=== PATIENT | male | born 1940 | race Caucasian/White ===

== ENCOUNTER 2017-11-05 07:17 | Day surgery (SDC) | payer MEDICARE, BC ==
[2017-11-05] MEDS: Polymyxin B/Trimethoprim 10 ML Bottle EYELF SCH ×4 (07:35→09:51)
--- NOTE | 2017-11-05 07:39 | PCM.PREANE ---
Preanesthetic Assessment - Anesthesia/Transfusion/Family Hx Anesthesia History: Prior Anesthesia Without Reaction Family History of Anesthesia Reaction: No Transfusion History: Prior Transfusion Without Reaction - Review of Systems General: No Symptoms Pulmonary: Shortness of Breath, Other (asthma, COPD) Cardiovascular: Other (HTN, afib, Increased cholesterol) Gastrointestinal: No Symptoms Neurological: No Symptoms Other: Reports: Easy Bruising - Physical Assessment NPO Status Date: 11/04/17 NPO Status Time: 22:00 Pulse: 78 O2 Sat by Pulse Oximetry: 95 Respiratory Rate: 16 Blood Pressure: 134/90 Weight: 70.76 kg ASA Class: 3 Mental Status: Alert & Oriented x3 Airway Class: Mallampati = 2 Dentition: Reports: Normal Dentition, Dentures, Edentulous Thyro-Mental Finger Breadths: 3 Mouth Opening Finger Breadths: 3 ROM/Head Extension: Full Lungs: Clear to Auscultation, Normal Respiratory Effort Cardiovascular: Regular Rate, Regular Rhythm - Allergies Allergies/Adverse Reactions: Allergies Allergy/AdvReac Type Severity Reaction Status Date / Time bupropion Allergy Other Verified 11/04/17 09:46 codeine Allergy Itching Verified 11/04/17 09:46 tramadol Allergy Cannot Verified 11/04/17 09:46 Remember - Blood Blood Available: No Product(s) Available: None - Anesthesia Plan Pre-Op Medication Ordered: None Beta Klaus: Carvedilol Med Last Dose Date: 11/05/17 Med Last Dose Time: 06:30 - Acknowledgements Anesthesia Type Planned: MAC Pt an Appropriate Candidate for the Planned Anesthesia: Yes Alternatives and Risks of Anesthesia Discussed w Pt/Guardian: Yes Pt/Guardian Understands and Agrees with Anesthesia Plan: Yes PreAnesthesia Questionnaire - HOME MEDS Home Medications: Home Meds Apixaban [Eliquis] 5 mg PO BID 12/21/15 [History] Budesonide/Formoterol [Symbicort 160-4.5 MCG] 2 puff INH BID 12/21/15 [History] Calcium Carbonate/Vitamin D3 [Os-Marito 500+D Caplet] 1 each PO DAILY 12/21/15 [ History] Carvedilol [Coreg] 25 mg PO BID 12/21/15 [History] Digoxin 125 mcg PO DAILY 12/21/15 [History] Furosemide [Lasix] 40 mg PO BID 12/21/15 [History] Simvastatin [Zocor] 40 mg PO BEDTIME 12/21/15 [History] Ubidecarenone [Co Q-10] 200 mg PO DAILY 12/21/15 [History] Cyanocobalamin (Vitamin B12) [Vitamin B12] 1,000 mcg PO DAILY 11/04/17 [History] Lisinopril 40 mg PO DAILY 11/04/17 [History] Tiotropium [Spiriva Handihaler] 1 puff INH DAILY 11/04/17 [History] - CURRENT (IN HOUSE) MEDS Current Meds: Current Medications Brimonidine Tartrate (Alphagan 0.2% Ophth Soln) 0 ml EYELF ASDIRECTED ELIZABETH Stop: 11/05/17 18:00 Cefuroxime Sodium (Zinacef) 0 mg EYELF ASDIRECTED ELIZABETH Stop: 11/05/17 18:00 Lidocaine HCl (Xylocaine-Mpf 1%) 0 ml INJECT ASDIRECTED ELIZABETH Stop: 11/05/17 18:00 Phenylephrine HCl (Michael-Synephrine 2.5% Ophth Soln) 0 ml EYELF ASDIRECTED ELIZABETH Stop: 11/05/17 18:00 Pilocarpine HCl (Pilocar 4% Ophth Soln) 0 ml EYELF ASDIRECTED ELIZABETH Stop: 11/05/17 18:00 Polymyxin/Trimethoprim Sulfate (Polytrim Ophth Soln) 0 ml EYELF ASDIRECTED ELIZABETH Stop: 11/05/17 18:00 Tetracaine HCl (Tetracaine 0.5% Steri-Unit Tomeka) 0 ml EYELF ASDIRECTED ELIZABETH Stop: 11/05/17 18:00 Tropicamide (Mydriacyl 1% Ophth Soln) 0 ml EYELF ASDIRECTED ELIZABETH Stop: 11/05/17 18:00
[2017-11-05] MEDS: Brimonidine 0.2% Ophth Soln 5 ML Bottle EYELF SCH ×4 (07:40→09:51)
[2017-11-05] MEDS: Phenylephrine 2.5% Ophth Soln 2 ML Bot EYELF SCH ×7 (07:47→09:28)
[2017-11-05] MEDS: Cefuroxime 10 MG/ML SYRINGE EYELF SCH ×2 (07:50→09:50)
[2017-11-05] MEDS: Tropicamide 1% Ophth Soln 15 ML Bottle EYELF SCH ×4 (07:50→08:54)
[2017-11-05] MEDS: Tetracaine HCl/PF 0.5% 4 ML Bottle EYELF SCH ×3 (07:50→09:38)
[2017-11-05] MEDS: Lidocaine 1% PF 2 ML SDV INJECT SCH ×2 (07:50→09:38)
[2017-11-05] MEDS: Pilocarpine 4% Ophth Soln 15 ML Bot EYELF SCH ×2 (07:51→09:51)
--- NOTE | 2017-11-05 09:52 | PCM48HPAN ---
Post Anesthesia Note - EVALUATION WITHIN 48HRS OF ANESTHETIC Vital Signs in Normal Range: Yes Patient Participated in Evaluation: Yes Respiratory Function Stable: Yes Airway Patent: Yes Cardiovascular Function Stable: Yes Hydration Status Stable: Yes Pain Control Satisfactory: Yes Nausea and Vomiting Control Satisfactory: Yes Mental Status Recovered: Yes Pulse Rate: 70 SaO2: 99 Resp Rate: 20 Temperature: 36.8 C Blood Pressure: 147/97
[2017-11-05 10:03] VITALS: BP 141/76
== END 2017-11-05 10:00 | disposition home or self-care (01) ==
LOC: JD.SDS 07:17
PROVIDERS: ATTEND Ophthalmology
DX: H25.812 Combined forms of age-related cataract, left eye (principal); H40.051 Ocular hypertension, right eye; H18.231 Secondary corneal edema, right eye; E78.00 Pure hypercholesterolemia, unspecified; I10 Essential (primary) hypertension; I48.91 Unspecified atrial fibrillation; J44.9 Chronic obstructive pulmonary disease, unspecified; C44.90 Unspecified malignant neoplasm of skin, unspecified; Z79.899 Other long term (current) drug therapy; Z98.41 Cataract extraction status, right eye; Z96.1 Presence of intraocular lens; Z87.891 Personal history of nicotine dependence; Z83.518 Family history of other specified eye disorder
CPT/HCPCS: 66982; C1780; J0697; A9270-GY; J2001

== ENCOUNTER 2020-08-18 19:51 | Emergency (ER) | payer MEDICARE, BC ==
[2020-08-18 20:01] VITALS: BP 165/91; PULSE 69
[2020-08-18] MEDS ORDERED: Lidocaine 1% with EPINEPHrine 1:100,000 10 ML MDV INJECT ONE (21:18)
--- NOTE | 2020-08-18 22:27 | EDM.PDOC ---
ED HPI GENERAL MEDICAL PROBLEM - General Chief Complaint: Laceration Stated Complaint: LEFT EAR BLEEDING ON BLOOD THINNER Time Seen by Provider: 08/18/20 20:42 Source of Information: Reports: Patient History Limitations: Reports: No Limitations - History of Present Illness INITIAL COMMENTS - FREE TEXT/NARRATIVE: Patient arrived to ED via private vehicle Incident occurred about 1500 today He was putting an earbud into his left ear He is uncertain exactly what occurred, thinks he may have scratched the ear with his fingernail, or the earbud He developed bleeding from a very small wound/scratch on the left earlobe He has applied pressure repeatedly throughout the afternoon/evening, and bleeding has continued There is no significant pain of the left ear He takes apixaban and clopidogrel chronically - Related Data Allergies Allergy/AdvReac Type Severity Reaction Status Date / Time bupropion Allergy Other Verified 08/18/20 20:00 codeine Allergy Itching Verified 08/18/20 20:00 tramadol Allergy Cannot Verified 08/18/20 20:00 Remember Home Meds: Home Meds Apixaban [Eliquis] 5 mg PO BID 12/21/15 [History] Budesonide/Formoterol [Symbicort 160-4.5 MCG] 2 puff INH BID 12/21/15 [History] Digoxin 125 mcg PO DAILY 12/21/15 [History] Furosemide [Lasix] 40 mg PO BID 12/21/15 [History] Simvastatin [Zocor] 40 mg PO BEDTIME 12/21/15 [History] Ubidecarenone [Co Q-10] 200 mg PO DAILY 12/21/15 [History] carvediloL [Coreg] 25 mg PO BID 12/21/15 [History] Cyanocobalamin (Vitamin B12) [Vitamin B12] 1,000 mcg PO DAILY 11/04/17 [History] Lisinopril 40 mg PO DAILY 11/04/17 [History] Tiotropium [Spiriva Handihaler] 1 puff INH DAILY 11/04/17 [History] Multivitamin [Daily Multiple Vitamin] 1 tab PO DAILY 11/05/17 [History] amLODIPine Besylate [Norvasc] 5 mg PO DAILY #15 tablet 11/13/18 [Rx] Past Medical History HEENT History: Reports: Allergic Rhinitis Cardiovascular History: Reports: Afib, Heart Failure, High Cholesterol, Hypertension, SOB on Exertion Respiratory History: Reports: Asthma, COPD - Past Surgical History Musculoskeletal Surgical History: Reports: Other (See Below) Other Musculoskeletal Surgeries/Procedures:: toe amputation Social & Family History - Tobacco Use Tobacco Use Status *Q: Never Tobacco User Second Hand Smoke Exposure: No - Recreational Drug Use Recreational Drug Use: No ED ROS GENERAL - Review of Systems Review Of Systems: See Below Constitutional: Denies: Weakness HEENT: Denies: Ear Discharge, Ear Pain Hematologic/Lymphatic: Reports: Easy Bleeding ED EXAM, SKIN/RASH Exam: See Below Text/Narrative:: Constitutional - awake; alert; no acute distress Head - no facial swelling or weakness Eyes - extra ocular motion intact; conjunctiva normal ENT - no nasal deformity; no epistaxis; normal phonation; mild bleeding present from punctate wound at the upper aspect of left earlobe Neck - no swelling Respiratory - normal respiratory effort Musculoskeletal - grossly normal strength and motion Skin - warm; dry Neurologic - normal speech; gait intact Psychiatric - normal mood and affect; memory and attention normal Course - Vital Signs Text/Narrative:: Symptoms and examination were discussed Bleeding was easily controlled with application of pressure over the site, however upon discontinuation of manual pressure it would recur within 1-2 seconds Cautery with silver nitrate was attempted, without improvement After attention by journalists and other writers to other patient care priorities in ED, injection of earlobe using lidocaine 1% with epinephrine was planned Upon removal of spring-clip and gauze dressing, there was recurrence of scant bleeding, which is subsequently subsided Decision was made to proceed with injection as planned Infiltration of 0.3 to 0.4 mL of lidocaine with epinephrine was performed via 30-gauge needle, tolerated well Patient was observed for 30 minutes thereafter, with no further recurrence of bleeding Patient was felt to be stable for outpatient follow-up Return precautions were provided Last Recorded V/S: Last Vital Signs Temp 36.3 C 08/18/20 19:58 Pulse 69 08/18/20 19:58 Resp 18 08/18/20 19:58 BP 165/91 H 08/18/20 19:58 Pulse Ox 94 L 08/18/20 19:58 - Orders/Labs/Meds Meds: Medications Discontinued Medications Generic Name Dose Route Start Last Admin Trade Name Freq PRN Reason Stop Dose Admin Lidocaine/Epinephrine 10 ml 08/18/20 21:18 08/18/20 21:57 Lidocaine 1% With Epinephrine 1:100,000 10 Ml Mdv INJECT 08/18/20 21:19 10 ml ONETIME ONE Administration Departure - Departure Time of Disposition: 22:25 Disposition: Home, Self-Care 01 Condition: Good Clinical Impression: Laceration of ear lobe Qualifiers: Encounter type: initial encounter Laterality: left Qualified Code(s): S01.312A - Laceration without foreign body of left ear, initial encounter - Discharge Information Instructions: Nonsutured Laceration Care Referrals: Soheila Messer MD [Primary Care Provider] - Forms: ED Department Discharge Additional Instructions: Return if condition worsens Resume general activity and regular diet as tolerated Continue usual medications Follow-up with primary care provider is recommended in 5 to 7 days Sepsis Event Note (ED) - Evaluation Sepsis Screening Result: No Definite Risk - Focused Exam Vital Signs: Vital Signs Temp Pulse Resp BP Pulse Ox 08/18/20 19:58 36.3 C 69 18 165/91 H 94 L
== END 2020-08-18 22:37 | disposition home or self-care (01) ==
LOC: JD.ED 19:51
DX: S01.312A Laceration without foreign body of left ear, initial encounter (principal); I48.91 Unspecified atrial fibrillation; E78.00 Pure hypercholesterolemia, unspecified; I11.0 Hypertensive heart disease with heart failure; I50.9 Heart failure, unspecified; J44.9 Chronic obstructive pulmonary disease, unspecified; Z88.8 Allergy status to other drugs, medicaments and biological substances; Z88.5 Allergy status to narcotic agent; Z79.01 Long term (current) use of anticoagulants; Z79.899 Other long term (current) drug therapy; X58.XXXA Exposure to other specified factors, initial encounter
CPT/HCPCS: 12011; 99282-25; 99283